=== PATIENT | female | born 1960 | race Caucasian/White ===

== ENCOUNTER 2017-12-24 20:03 | Inpatient (IN) | payer OTHER ==
[~2017-12-24] VITALS: Ht 152.4 cm; Wt 142.2 kg
[~2017-12-24 20:03] MED LIST: ETOMIDATE 2 MG/ML 10 ML VIAL IVP ONE
[2017-12-24 20:33] LABS: ABG BASE EXCESS 5.2 mmol/L (-2.0-3.0); ABG HCO3 39.2 mmol/L (21.0-28.0); ABG OXYGEN SATURATION 87.7 % (95.0-99.0); ABG PCO2 120 mmHg (32-45)
[2017-12-24 21:08] LABS: BASOPHILS % (AUTO) 0.4 % (0.0-5.0); EOSINOPHILS % (AUTO) 0.2 % (0.0-8.0); HEMATOCRIT 37.9 % (36-48); LYMPHOCYTES % (AUTO) 4.5 % (21.0-51.0); MEAN CORPUSCULAR HGB CONC 31.9 g/dL (32.0-36.0); MEAN CORPUSCULAR VOLUME 103.4 fL (79-99); NEUTROPHILS % (AUTO) 90.9 % (40.0-77.0); PLATELET COUNT (AUTO) 261 K/uL (130-400); RED BLOOD CELL COUNT(AUTO) 3.66 MIL/uL (4.00-5.50); RED CELL DISTRIBUTION WIDTH 15.1 % (11.0-15.5); WHITE BLOOD COUNT (AUTO) 13.8 K/uL (4.8-10.8)
[2017-12-24 21:20] LABS: INR 1.01 (0.85-1.15); PARTIAL THROMBOPLASTIN TIME 28.4 SEC (26.3-35.5); PROTHROMBIN TIME 10.6 SEC (9.6-11.6)
[2017-12-24 21:22] LABS: ALBUMIN 2.9 g/dL (3.5-5.0); BILIRUBIN,TOTAL 0.6 mg/dL (0.2-1.0); CREATININE 2.9 mg/dL (0.5-1.5); TOTAL PROTEIN, SERUM 7.3 g/dL (6.0-8.3)
[2017-12-24 21:23] LABS: APPEARANCE,URINE CLEAR (CLEAR); BILIRUBIN,URINE NEGATIVE (NEGATIVE); COLOR,URINE YELLOW (YELLOW); GLUCOSE, URINE (UA) NEGATIVE (NEGATIVE); KETONES,URINE NEGATIVE (NEGATIVE); LEUKOCYTE ESTERASE ,URINE NEGATIVE (NEGATIVE); NITRATE,URINE NEGATIVE (NEGATIVE); OCCULT BLOOD,URINE TRACE-LYSED (NEGATIVE); PH,URINE 5.5 (5.0-8.0); PROTEIN,URINE >=300 (NEGATIVE)
[2017-12-24 21:26] LABS: POTASSIUM 6.2 mmol/L (3.5-5.1)
[2017-12-24 21:28] LABS: AMPHET/METH SCREEN,URINE NEGATIVE (NEGATIVE); BARBITURATE SCREEN, URINE NEGATIVE (NEGATIVE); BENZODIAZEPINES SCREEN,URINE NEGATIVE (NEGATIVE); CANNABINOID SCREEN,URINE NEGATIVE (NEGATIVE); COCAINE SCREEN,URINE NEGATIVE (NEGATIVE); OPIATE SCREEN,URINE POSITIVE (NEGATIVE); PHENCYCLIDINE SCREEN,URINE NEGATIVE (NEGATIVE)
[2017-12-24 21:31] LABS: BACTERIA,URINE Rare /HPF (None Seen); SQUAMOUS EPITHELIAL CELL,UR Rare /HPF (0-2); WBC,URINE 0-1 /HPF (0-1)
[2017-12-24 22:15] LABS: ABG BASE EXCESS 5.7 mmol/L (-2.0-3.0); ABG OXYGEN SATURATION 93.4 % (95.0-99.0); ABG PCO2 73 mmHg (32-45)
[2017-12-24] MEDS ORDERED: ALBUTEROL SULFATE 0.083% 2.5 MG/3 ML INH IH ONE (22:26)
[2017-12-24] MEDS ORDERED: CALCIUM GLUCONATE 1 GM/10 ML VIAL IV ONE (22:34)
[2017-12-24] MEDS ORDERED: INSULIN HUMULIN R 100 UNIT/ML 3ML ONE (22:35)
[2017-12-24] MEDS ORDERED: SODIUM CHLORIDE 0.9% 1000ML 1,000 ML IV ONE (23:10)
[2017-12-25] VITALS (41 sets, daily range): BP systolic 92–177; BP diastolic 54–120
[2017-12-25 00:14] LABS: POTASSIUM 5.6 mmol/L (3.5-5.1)
[2017-12-25 01:27] LABS: ABG BASE EXCESS 4.5 mmol/L (-2.0-3.0); ABG HCO3 34.4 mmol/L (21.0-28.0); ABG OXYGEN SATURATION 86.9 % (95.0-99.0); ABG PCO2 78 mmHg (32-45)
[2017-12-25] MEDS ORDERED: ZOSYN 3.375GM+NS 50ML 50 ML IV ONE (02:07)
[2017-12-25] MEDS ORDERED: SODIUM CHLORIDE 0.9% 50 ML IV ONE (02:07)
[2017-12-25] MEDS ORDERED: ENOXAPARIN SODIUM 30 MG/0.3 ML SQ ONE (02:25)
[2017-12-25 06:11] LABS: BASOPHILS % (AUTO) 0.3 % (0.0-5.0); EOSINOPHILS % (AUTO) 0.1 % (0.0-8.0); HEMATOCRIT 37.4 % (36-48); LYMPHOCYTES % (AUTO) 9.7 % (21.0-51.0); MEAN CORPUSCULAR HEMOGLOBIN 32.2 pg (27.0-33.0); MEAN CORPUSCULAR HGB CONC 31.6 g/dL (32.0-36.0); MEAN CORPUSCULAR VOLUME 101.9 fL (79-99); MONOCYTES % (AUTO) 3.8 % (3.0-13.0); NEUTROPHILS % (AUTO) 86.1 % (40.0-77.0); PLATELET COUNT (AUTO) 220 K/uL (130-400); RED BLOOD CELL COUNT(AUTO) 3.67 MIL/uL (4.00-5.50); RED CELL DISTRIBUTION WIDTH 14.7 % (11.0-15.5)
[2017-12-25 06:20] LABS: CREATININE 2.9 mg/dL (0.5-1.5); POTASSIUM 5.3 mmol/L (3.5-5.1)
[2017-12-25 06:26] LABS: BILIRUBIN,TOTAL 0.5 mg/dL (0.2-1.0); MAGNESIUM 1.6 mg/dL (1.80-2.40); TOTAL PROTEIN, SERUM 7.2 g/dL (6.0-8.3)
[2017-12-25] MEDS ORDERED: IPRATROPIUM/ALBUTEROL SULFATE 3 ML SOLUTION IH ONE (06:45)
[2017-12-25] MEDS ORDERED: LACTATED RINGERS 1000ML 1,000 ML IV SCH (07:00)
[2017-12-25] MEDS: IPRATROPIUM/ALBUTEROL SULFATE 3 ML SOLUTION IH SCH ×3 (07:14→18:13)
[2017-12-25 07:15] LABS: ABG HCO3 37.9 mmol/L (21.0-28.0); ABG OXYGEN SATURATION 93.2 % (95.0-99.0); ABG PCO2 97 mmHg (32-45)
[2017-12-25] MEDS: ZOSYN 3.375GM+NS 50ML 50 ML IV SCH ×2 (08:19→08:22)
[2017-12-25] MEDS: ENOXAPARIN SODIUM 30 MG/0.3 ML SQ SCH ×2 (08:22→19:40)
[2017-12-25] MEDS ORDERED: FENTANYL 2500MCG+NS 250ML 250 ML IV ONE (09:12)
[2017-12-25] MEDS: MIDAZOLAM 100MG-0.9% NS 100ML 100 ML IV PRN ×2 (09:20→19:39)
[2017-12-25] MEDS: FENTANYL 2500MCG+NS 250ML 250 ML IV PRN ×2 (09:20→22:02)
[2017-12-25] MEDS ORDERED: VANCOMYCIN PROTOCOL PER PHARMACY IV SCH (09:30)
[2017-12-25] MEDS ORDERED: SODIUM CHLORIDE 0.9% 1000ML 1,000 ML IV SCH (09:30)
[2017-12-25] MEDS: SODIUM CHLORIDE 0.9% 1000ML 1,000 ML IV SCH ×2 (09:30→19:35)
[2017-12-25] MEDS ORDERED: LORAZEPAM 2 MG/ML 1 ML VIAL ONE (09:36)
[2017-12-25] MEDS ORDERED: COMPOUND IV REFRIGERATED 1 EACH IVSOLN MISC PRN (09:45)
[2017-12-25] MEDS ORDERED: LORAZEPAM 2 MG/ML 1 ML VIAL IVP SCH (09:48)
[2017-12-25 10:38] LABS: ABG HCO3 33.2 mmol/L (21.0-28.0); ABG OXYGEN SATURATION 99.4 % (95.0-99.0); ABG PCO2 35 mmHg (32-45)
[2017-12-25] MEDS ORDERED: INSULIN HUMULIN R 100 UNIT/ML 3ML SQ SCH (11:30)
[2017-12-25] MEDS: CEFEPIME HCL 1 GM VIAL IVP SCH ×2 (11:40→22:13)
[2017-12-25] MEDS: LEVOFLOXACIN 500 MG/D5W 100 ML 100 ML IV SCH (11:48)
[2017-12-25] MEDS: FAMOTIDINE/PF 20 MG/2 ML VIAL IV SCH (11:48)
[2017-12-25] MEDS ORDERED: MORP15TA43 PO (11:55)
[2017-12-25] MEDS ORDERED: SIMV40TA5 PO (11:55)
[2017-12-25] MEDS ORDERED: LEVO25TA4 PO (11:55)
[2017-12-25] MEDS ORDERED: FURO40TA7 PO (11:55)
[2017-12-25] MEDS ORDERED: HYDR-4068 PO (11:55)
[2017-12-25] MEDS ORDERED: GLIM4TAB PO (11:55)
[2017-12-25] MEDS ORDERED: OMEP40CA37 PO (11:55)
[2017-12-25] MEDS ORDERED: LISI-613 PO (11:55)
[2017-12-25] MEDS ORDERED: METO50 PO (11:55)
[2017-12-25] MEDS ORDERED: VENL75CA55 PO (11:55)
[2017-12-25] MEDS: VANCOMYCIN 2 GM in SODIUM CHLORIDE 0.9% 500ML 500 ML IV SCH (12:50)
[2017-12-25] MEDS: FUROSEMIDE 10 MG/ML 4ML VIAL IV SCH (13:09)
[2017-12-25 15:10] LABS: CREATININE 2.7 mg/dL (0.5-1.5); POTASSIUM 4.9 mmol/L (3.5-5.1)
[2017-12-25] MEDS: INSULIN HUMULIN R 100 UNIT/ML 3ML SQ SCH (18:00)
[2017-12-25] MEDS ORDERED: HUM100IN SQ (18:15)
[2017-12-25] MEDS: MAGNESIUM 2GM PREMIX 50ML 50 ML IV PRN (19:34)
[2017-12-26] VITALS (24 sets, daily range): BP systolic 108–145; BP diastolic 63–99
[2017-12-26] MEDS: IPRATROPIUM/ALBUTEROL SULFATE 3 ML SOLUTION IH SCH ×6 (00:02→23:29)
[2017-12-26] MEDS: SODIUM CHLORIDE 0.9% 1000ML 1,000 ML IV SCH ×2 (01:25→08:24)
[2017-12-26] MEDS: FUROSEMIDE 10 MG/ML 4ML VIAL IV SCH ×2 (01:25→13:56)
[2017-12-26 05:12] LABS: ABG BASE EXCESS 6.7 mmol/L (-2.0-3.0); ABG HCO3 29.7 mmol/L (21.0-28.0); ABG OXYGEN SATURATION 95.3 % (95.0-99.0); ABG PCO2 37 mmHg (32-45)
[2017-12-26 05:36] LABS: MEAN CORPUSCULAR HEMOGLOBIN 33.5 pg (27.0-33.0); MEAN CORPUSCULAR HGB CONC 34.3 g/dL (32.0-36.0); MEAN CORPUSCULAR VOLUME 97.5 fL (79-99); PLATELET COUNT (AUTO) 232 K/uL (130-400); RED BLOOD CELL COUNT(AUTO) 3.28 MIL/uL (4.00-5.50); RED CELL DISTRIBUTION WIDTH 14.4 % (11.0-15.5); WHITE BLOOD COUNT (AUTO) 7.8 K/uL (4.8-10.8)
[2017-12-26] MEDS: INSULIN HUMULIN R 100 UNIT/ML 3ML SQ SCH ×4 (06:00→18:00)
[2017-12-26 06:05] LABS: ALBUMIN 2.5 g/dL (3.5-5.0); BILIRUBIN,TOTAL 0.7 mg/dL (0.2-1.0); CREATININE 2.8 mg/dL (0.5-1.5); MAGNESIUM 1.8 mg/dL (1.80-2.40); PHOSPHORUS 3.3 mg/dL (2.5-4.9); TOTAL PROTEIN, SERUM 6.3 g/dL (6.0-8.3); TROPONIN I 0.36 ng/mL (0.00-0.06)
[2017-12-26] MEDS: MAGNESIUM 2GM PREMIX 50ML 50 ML IV PRN (08:52)
[2017-12-26] MEDS: FAMOTIDINE/PF 20 MG/2 ML VIAL IV SCH (08:53)
[2017-12-26] MEDS: ENOXAPARIN SODIUM 30 MG/0.3 ML SQ SCH ×2 (08:53→21:07)
[2017-12-26] MEDS: MIDAZOLAM 100MG-0.9% NS 100ML 100 ML IV PRN ×2 (08:53→21:06)
[2017-12-26] MEDS: CEFEPIME HCL 1 GM VIAL IVP SCH ×2 (08:53→21:06)
[2017-12-26] MEDS: FENTANYL 2500MCG+NS 250ML 250 ML IV PRN (11:36)
[2017-12-27] VITALS (22 sets, daily range): BP systolic 96–149; BP diastolic 51–91
[2017-12-27] MEDS: FUROSEMIDE 10 MG/ML 4ML VIAL IV SCH ×2 (01:06→11:41)
[2017-12-27] MEDS: INSULIN HUMULIN R 100 UNIT/ML 3ML SQ SCH ×4 (01:09→18:00)
[2017-12-27] MEDS: FENTANYL 2500MCG+NS 250ML 250 ML IV PRN (02:03)
[2017-12-27 04:54] LABS: ABG HCO3 31.6 mmol/L (21.0-28.0); ABG OXYGEN SATURATION 97.8 % (95.0-99.0); ABG PCO2 33 mmHg (32-45)
[2017-12-27 05:28] LABS: HEMATOCRIT 31.3 % (36-48); MEAN CORPUSCULAR HEMOGLOBIN 32.8 pg (27.0-33.0); MEAN CORPUSCULAR HGB CONC 33.4 g/dL (32.0-36.0); PLATELET COUNT (AUTO) 210 K/uL (130-400); RED CELL DISTRIBUTION WIDTH 14.7 % (11.0-15.5); WHITE BLOOD COUNT (AUTO) 6.7 K/uL (4.8-10.8)
[2017-12-27 05:40] LABS: CREATININE 2.8 mg/dL (0.5-1.5); MAGNESIUM 2.1 mg/dL (1.80-2.40); POTASSIUM 3.3 mmol/L (3.5-5.1)
[2017-12-27] MEDS: IPRATROPIUM/ALBUTEROL SULFATE 3 ML SOLUTION IH SCH ×4 (06:43→23:41)
[2017-12-27] MEDS: FAMOTIDINE/PF 20 MG/2 ML VIAL IV SCH (08:27)
[2017-12-27] MEDS: LEVOFLOXACIN 500 MG/D5W 100 ML 100 ML IV SCH (08:28)
[2017-12-27] MEDS: ENOXAPARIN SODIUM 30 MG/0.3 ML SQ SCH ×2 (08:28→21:12)
[2017-12-27] MEDS: MIDAZOLAM 100MG-0.9% NS 100ML 100 ML IV PRN ×2 (08:28→22:39)
[2017-12-27] MEDS: CEFEPIME HCL 1 GM VIAL IVP SCH ×2 (10:40→21:13)
[2017-12-27] MEDS: VANCOMYCIN 2 GM in SODIUM CHLORIDE 0.9% 500ML 500 ML IV SCH (10:48)
[2017-12-27] MEDS ORDERED: POTASSIUM CHLORIDE 20MEQ/100ML 100 ML IV ONE (10:57)
[2017-12-27] MEDS ORDERED: PHARMACY COMMUNICATION MISC SCH (11:00)
[2017-12-27] MEDS ORDERED: POTASSIUM CHLORIDE 10% ELIXIR 20 MEQ/15 ML UDCUP PO PRN (11:30)
[2017-12-27] MEDS ORDERED: POTASSIUM CHLORIDE 20 MEQ ERTAB PO PRN (11:30)
[2017-12-27] MEDS ORDERED: LIDOCAINE HCL-MPF 1% 2ML VIAL IJ PRN (11:30)
[2017-12-28] VITALS (23 sets, daily range): BP systolic 105–153; BP diastolic 67–90
[2017-12-28] MEDS: FUROSEMIDE 10 MG/ML 4ML VIAL IV SCH ×2 (01:37→12:11)
[2017-12-28] MEDS: POTASSIUM CHLORIDE 20MEQ/100ML 100 ML IV PRN ×3 (01:39→12:11)
[2017-12-28 04:01] LABS: HEMATOCRIT 32.7 % (36-48); MEAN CORPUSCULAR HEMOGLOBIN 33.3 pg (27.0-33.0); MEAN CORPUSCULAR HGB CONC 34.2 g/dL (32.0-36.0); MEAN CORPUSCULAR VOLUME 97.6 fL (79-99); PLATELET COUNT (AUTO) 236 K/uL (130-400); RED BLOOD CELL COUNT(AUTO) 3.35 MIL/uL (4.00-5.50); RED CELL DISTRIBUTION WIDTH 14.9 % (11.0-15.5); WHITE BLOOD COUNT (AUTO) 6.9 K/uL (4.8-10.8)
[2017-12-28 04:16] LABS: ALBUMIN 2.3 g/dL (3.5-5.0); BILIRUBIN,TOTAL 0.9 mg/dL (0.2-1.0); CREATININE 2.9 mg/dL (0.5-1.5); POTASSIUM 3.2 mmol/L (3.5-5.1); TOTAL PROTEIN, SERUM 6.4 g/dL (6.0-8.3)
[2017-12-28 04:21] LABS: ABG BASE EXCESS 7.3 mmol/L (-2.0-3.0); ABG HCO3 29.5 mmol/L (21.0-28.0); ABG OXYGEN SATURATION 96.4 % (95.0-99.0); ABG PCO2 34 mmHg (32-45)
[2017-12-28] MEDS: INSULIN HUMULIN R 100 UNIT/ML 3ML SQ SCH ×4 (05:47→18:16)
[2017-12-28] MEDS: IPRATROPIUM/ALBUTEROL SULFATE 3 ML SOLUTION IH SCH ×3 (06:29→18:12)
[2017-12-28] MEDS: CEFEPIME HCL 1 GM VIAL IVP SCH ×2 (09:16→20:45)
[2017-12-28] MEDS: FAMOTIDINE/PF 20 MG/2 ML VIAL IV SCH (09:16)
[2017-12-28] MEDS: ENOXAPARIN SODIUM 30 MG/0.3 ML SQ SCH ×2 (09:17→20:42)
[2017-12-28] MEDS: ARTIFICAL TEARS SOL 15 ML OU SCH ×3 (09:18→20:42)
[2017-12-28 12:15] LABS: ABG BASE EXCESS 4.9 mmol/L (-2.0-3.0); ABG HCO3 27.7 mmol/L (21.0-28.0); ABG OXYGEN SATURATION 96.2 % (95.0-99.0); ABG PCO2 35 mmHg (32-45)
[2017-12-28] MEDS: MIDAZOLAM HCL 1 MG/ML 2ML VIAL IVP PRN ×2 (15:51→21:53)
[2017-12-28] MEDS ORDERED: ARTIFICAL TEARS SOL 15 ML OU SCH (21:00)
[2017-12-28] MEDS: FENTANYL CITRATE PF 50 MCG/1 ML 2ML VIAL IVP PRN (23:40)
[2017-12-29] VITALS (24 sets, daily range): BP systolic 95–158; BP diastolic 50–96
[2017-12-29] MEDS: FUROSEMIDE 10 MG/ML 4ML VIAL IV SCH ×2 (00:06→14:04)
[2017-12-29] MEDS: INSULIN HUMULIN R 100 UNIT/ML 3ML SQ SCH ×5 (00:07→23:48)
[2017-12-29] MEDS: IPRATROPIUM/ALBUTEROL SULFATE 3 ML SOLUTION IH SCH ×5 (00:24→23:58)
[2017-12-29] MEDS ORDERED: PROPOFOL 1000 MG/100 ML 100 ML IV ONE (01:07)
[2017-12-29] MEDS ORDERED: PROPOFOL 1000 MG/100 ML IV PRN (01:15)
[2017-12-29] MEDS: ARTIFICAL TEARS SOL 15 ML OU SCH ×4 (03:05→20:06)
[2017-12-29 03:56] LABS: BASOPHILS % (AUTO) 0.4 % (0.0-5.0); EOSINOPHILS % (AUTO) 3.3 % (0.0-8.0); HEMATOCRIT 33.5 % (36-48); LYMPHOCYTES % (AUTO) 12.1 % (21.0-51.0); MEAN CORPUSCULAR HEMOGLOBIN 32.5 pg (27.0-33.0); MEAN CORPUSCULAR HGB CONC 33.4 g/dL (32.0-36.0); MEAN CORPUSCULAR VOLUME 97.2 fL (79-99); NEUTROPHILS % (AUTO) 79.2 % (40.0-77.0); PLATELET COUNT (AUTO) 212 K/uL (130-400); RED BLOOD CELL COUNT(AUTO) 3.45 MIL/uL (4.00-5.50); WHITE BLOOD COUNT (AUTO) 8.6 K/uL (4.8-10.8)
[2017-12-29 04:14] LABS: MAGNESIUM 1.9 mg/dL (1.80-2.40); PHOSPHORUS 3.4 mg/dL (2.5-4.9); POTASSIUM 3.4 mmol/L (3.5-5.1)
[2017-12-29] MEDS: ALPRAZOLAM 0.25 MG TABLET PO SCH ×2 (09:39→21:53)
[2017-12-29] MEDS: LEVOFLOXACIN 500 MG/D5W 100 ML 100 ML IV SCH (09:39)
[2017-12-29] MEDS: ENOXAPARIN SODIUM 30 MG/0.3 ML SQ SCH ×2 (09:40→20:06)
[2017-12-29] MEDS: FAMOTIDINE/PF 20 MG/2 ML VIAL IV SCH (09:41)
[2017-12-29] MEDS: CEFEPIME HCL 1 GM VIAL IVP SCH ×2 (09:41→22:05)
[2017-12-29] MEDS ORDERED: POTASSIUM CHLORIDE 20 MEQ ERTAB PO PRN (13:00)
[2017-12-29] MEDS ORDERED: POTASSIUM CHLORIDE 10MEQ/100ML 100 ML IV PRN (13:00)
[2017-12-29] MEDS ORDERED: LIDOCAINE HCL-MPF 1% 2ML VIAL IVP PRN (13:00)
[2017-12-29] MEDS: MAGNESIUM 2GM PREMIX 50ML 50 ML IV PRN (14:05)
[2017-12-29] MEDS: POTASSIUM CHLORIDE 10% ELIXIR 20 MEQ/15 ML UDCUP PO PRN ×2 (14:06→16:00)
[2017-12-29] MEDS: FENTANYL CITRATE PF 50 MCG/1 ML 2ML VIAL IVP PRN (14:55)
[2017-12-29] MEDS: VANCOMYCIN 1.5 GM in SODIUM CHLORIDE 0.9% 250 ML IV SCH (15:39)
[2017-12-29] MEDS ORDERED: SODIUM CHLORIDE 0.9% 500ML 500 ML IV ONE (15:44)
[2017-12-29] MEDS: MIDAZOLAM HCL 1 MG/ML 2ML VIAL IVP PRN (19:34)
[2017-12-30] VITALS (23 sets, daily range): BP systolic 98–154; BP diastolic 51–96
[2017-12-30] MEDS: FUROSEMIDE 10 MG/ML 4ML VIAL IV SCH ×2 (00:46→12:38)
[2017-12-30] MEDS: ARTIFICAL TEARS SOL 15 ML OU SCH ×4 (02:19→21:25)
[2017-12-30] MEDS: FENTANYL CITRATE PF 50 MCG/1 ML 2ML VIAL IVP PRN ×2 (02:20→06:09)
[2017-12-30 04:41] LABS: BASOPHILS % (AUTO) 0.5 % (0.0-5.0); EOSINOPHILS % (AUTO) 4.3 % (0.0-8.0); HEMATOCRIT 31.9 % (36-48); LYMPHOCYTES % (AUTO) 8.9 % (21.0-51.0); MEAN CORPUSCULAR HEMOGLOBIN 33.7 pg (27.0-33.0); MEAN CORPUSCULAR HGB CONC 34.4 g/dL (32.0-36.0); MEAN CORPUSCULAR VOLUME 97.8 fL (79-99); NEUTROPHILS % (AUTO) 80.3 % (40.0-77.0); PLATELET COUNT (AUTO) 228 K/uL (130-400); RED BLOOD CELL COUNT(AUTO) 3.26 MIL/uL (4.00-5.50); RED CELL DISTRIBUTION WIDTH 14.7 % (11.0-15.5)
[2017-12-30 05:00] LABS: ALBUMIN 2.5 g/dL (3.5-5.0); MAGNESIUM 2.2 mg/dL (1.80-2.40); POTASSIUM 3.4 mmol/L (3.5-5.1); TOTAL PROTEIN, SERUM 6.9 g/dL (6.0-8.3)
[2017-12-30] MEDS: INSULIN HUMULIN R 100 UNIT/ML 3ML SQ SCH ×3 (06:14→18:00)
[2017-12-30] MEDS: IPRATROPIUM/ALBUTEROL SULFATE 3 ML SOLUTION IH SCH ×4 (06:17→22:12)
[2017-12-30] MEDS: ALPRAZOLAM 0.25 MG TABLET PO SCH ×2 (07:02→21:00)
[2017-12-30] MEDS: ENOXAPARIN SODIUM 30 MG/0.3 ML SQ SCH ×2 (09:52→21:24)
[2017-12-30] MEDS: FAMOTIDINE/PF 20 MG/2 ML VIAL IV SCH (09:53)
[2017-12-30] MEDS: CEFEPIME HCL 1 GM VIAL IVP SCH ×2 (09:54→21:23)
[2017-12-30 11:32] LABS: ABG BASE EXCESS 3.1 mmol/L (-2.0-3.0); ABG HCO3 27.1 mmol/L (21.0-28.0); ABG OXYGEN SATURATION 95.1 % (95.0-99.0); ABG PCO2 39 mmHg (32-45)
[2017-12-30] MEDS ORDERED: ACETAMINOPHEN ELIXIR 650 MG/20.3 ML UDCUP ONE (12:34)
[2017-12-30] MEDS ORDERED: ACETAMINOPHEN ELIXIR 650 MG/20.3 ML UDCUP PEG PRN (12:45)
[2017-12-30] MEDS ORDERED: RACEPINEPHRINE HCL 2.25% 0.5 ML NEB SOLN ONE ×2 (16:34→19:39)
[2017-12-30 17:45] LABS: ABG BASE EXCESS 0.8 mmol/L (-2.0-3.0); ABG HCO3 27.8 mmol/L (21.0-28.0); ABG OXYGEN SATURATION 93.4 % (95.0-99.0); ABG PCO2 54 mmHg (32-45)
[2017-12-30] MEDS ORDERED: RACEPINEPHRINE HCL 2.25% 0.5 ML NEB SOLN NEB ONE ×2 (18:00→20:45)
[2017-12-31] VITALS (18 sets, daily range): BP systolic 123–149; BP diastolic 64–92
[2017-12-31] MEDS ORDERED: METHYLPREDNISOLONE SOD SUCC 40MG/ML 1ML ONE (00:25)
[2017-12-31] MEDS ORDERED: RACEPINEPHRINE HCL 2.25% 0.5 ML NEB SOLN ONE (00:27)
[2017-12-31] MEDS ORDERED: RACEPINEPHRINE HCL 2.25% 0.5 ML NEB SOLN NEB PRN (00:30)
[2017-12-31] MEDS: METHYLPREDNISOLONE SOD SUCC 40MG/ML 1ML IVP SCH ×3 (00:30→16:10)
[2017-12-31] MEDS: FUROSEMIDE 10 MG/ML 4ML VIAL IV SCH ×2 (00:34→13:37)
[2017-12-31] MEDS: ARTIFICAL TEARS SOL 15 ML OU SCH (05:01)
[2017-12-31 05:17] LABS: CREATININE 2.8 mg/dL (0.5-1.5); POTASSIUM 3.8 mmol/L (3.5-5.1)
[2017-12-31] MEDS: INSULIN HUMULIN R 100 UNIT/ML 3ML SQ SCH ×5 (05:56→20:49)
[2017-12-31] MEDS: IPRATROPIUM/ALBUTEROL SULFATE 3 ML SOLUTION IH SCH ×5 (06:33→21:57)
[2017-12-31] MEDS: FAMOTIDINE/PF 20 MG/2 ML VIAL IV SCH (08:16)
[2017-12-31] MEDS: ENOXAPARIN SODIUM 30 MG/0.3 ML SQ SCH ×2 (08:17→20:51)
[2017-12-31] MEDS: ALPRAZOLAM 0.25 MG TABLET PO SCH ×2 (08:18→20:47)
[2017-12-31] MEDS: LEVOFLOXACIN 500 MG/D5W 100 ML 100 ML IV SCH (08:18)
[2017-12-31] MEDS ORDERED: HYDROCODONE/ACETAMINOPHEN 5/325 MG TAB PO PRN (10:00)
[2017-12-31] MEDS: CEFEPIME HCL 1 GM VIAL IVP SCH ×2 (10:24→22:32)
[2017-12-31] MEDS: HYDROCODONE/ACETAMINOPHEN 7.5/325 MG TAB PO PRN ×2 (12:02→17:49)
[2017-12-31] MEDS: VANCOMYCIN 1.5 GM in SODIUM CHLORIDE 0.9% 250 ML IV SCH (16:10)
[2017-12-31] MEDS ORDERED: ACETAMINOPHEN 325 MG TAB PO PRN (17:45)
[2018-01-01] MEDS: METHYLPREDNISOLONE SOD SUCC 40MG/ML 1ML IVP SCH ×2 (00:25→10:02)
[2018-01-01] MEDS: HYDROCODONE/ACETAMINOPHEN 7.5/325 MG TAB PO PRN ×4 (00:43→16:27)
[2018-01-01] MEDS: FUROSEMIDE 10 MG/ML 4ML VIAL IV SCH ×2 (00:43→10:02)
[2018-01-01] MEDS: IPRATROPIUM/ALBUTEROL SULFATE 3 ML SOLUTION IH SCH ×6 (01:54→21:08)
[2018-01-01 03:48] VITALS: BP 142/77
[2018-01-01 05:50] LABS: HEMATOCRIT 32.6 % (36-48); MEAN CORPUSCULAR HEMOGLOBIN 32.8 pg (27.0-33.0); MEAN CORPUSCULAR HGB CONC 33.2 g/dL (32.0-36.0); MEAN CORPUSCULAR VOLUME 98.8 fL (79-99); PLATELET COUNT (AUTO) 243 K/uL (130-400); RED CELL DISTRIBUTION WIDTH 14.2 % (11.0-15.5); WHITE BLOOD COUNT (AUTO) 11.3 K/uL (4.8-10.8)
[2018-01-01 06:05] LABS: POTASSIUM 3.9 mmol/L (3.5-5.1)
[2018-01-01] MEDS: INSULIN LISPRO 100 UNIT/ML 3ML SQ SCH ×5 (06:23→22:07)
[2018-01-01 08:00] VITALS: BP 142/81
[2018-01-01] MEDS: ALPRAZOLAM 0.25 MG TABLET PO SCH ×2 (10:01→21:58)
[2018-01-01] MEDS: CEFEPIME HCL 1 GM VIAL IVP SCH ×2 (10:02→21:57)
[2018-01-01] MEDS: FAMOTIDINE/PF 20 MG/2 ML VIAL IV SCH (10:02)
[2018-01-01] MEDS: ENOXAPARIN SODIUM 30 MG/0.3 ML SQ SCH ×2 (10:03→21:57)
[2018-01-01 12:00] VITALS: BP 138/77
[2018-01-01 16:00] VITALS: BP 152/84
[2018-01-01] MEDS: FUROSEMIDE 40 MG TABLET PO SCH (16:27)
[2018-01-01] MEDS: INSULIN GLARGINE 100 UNITS/ML 10 ML VIAL SQ SCH (16:35)
[2018-01-01 20:00] VITALS: BP_SYST 112; BP_SYST 140; BP_DIAS 65; BP_DIAS 72
[2018-01-01] MEDS: FAMOTIDINE 20MG TAB 20 MG TAB PO SCH (21:58)
[2018-01-02] VITALS (7 sets, daily range): BP systolic 126–148; BP diastolic 66–95
[2018-01-02] MEDS: HYDROCODONE/ACETAMINOPHEN 7.5/325 MG TAB PO PRN ×4 (00:06→23:52)
[2018-01-02] MEDS: IPRATROPIUM/ALBUTEROL SULFATE 3 ML SOLUTION IH SCH ×6 (02:04→21:46)
[2018-01-02] MEDS: FUROSEMIDE 40 MG TABLET PO SCH ×2 (05:05→13:45)
[2018-01-02 05:55] LABS: HEMATOCRIT 32.9 % (36-48); MEAN CORPUSCULAR HEMOGLOBIN 32.8 pg (27.0-33.0); MEAN CORPUSCULAR HGB CONC 33.1 g/dL (32.0-36.0); MEAN CORPUSCULAR VOLUME 99.1 fL (79-99); PLATELET COUNT (AUTO) 215 K/uL (130-400); RED BLOOD CELL COUNT(AUTO) 3.32 MIL/uL (4.00-5.50); WHITE BLOOD COUNT (AUTO) 10.2 K/uL (4.8-10.8)
[2018-01-02 06:19] LABS: ALBUMIN 2.9 g/dL (3.5-5.0); BILIRUBIN,TOTAL 0.3 mg/dL (0.2-1.0); CREATININE 2.9 mg/dL (0.5-1.5); POTASSIUM 3.7 mmol/L (3.5-5.1); TOTAL PROTEIN, SERUM 7.4 g/dL (6.0-8.3); URIC ACID 8.6 mg/dL (2.6-7.2)
[2018-01-02] MEDS: INSULIN LISPRO 100 UNIT/ML 3ML SQ SCH ×4 (06:46→21:17)
[2018-01-02] MEDS ORDERED: FUROSEMIDE 40 MG TABLET PO SCH (09:00)
[2018-01-02] MEDS: CEFEPIME HCL 1 GM VIAL IVP SCH ×2 (09:40→21:24)
[2018-01-02] MEDS: LEVOFLOXACIN 500 MG/D5W 100 ML 100 ML IV SCH (09:40)
[2018-01-02] MEDS: ALPRAZOLAM 0.25 MG TABLET PO SCH ×2 (09:40→21:13)
[2018-01-02] MEDS: PREDNISONE 10 MG TABLET PO SCH (09:40)
[2018-01-02] MEDS: FAMOTIDINE 20MG TAB 20 MG TAB PO SCH ×2 (09:40→21:13)
[2018-01-02] MEDS: ENOXAPARIN SODIUM 30 MG/0.3 ML SQ SCH ×2 (09:40→21:13)
[2018-01-02] MEDS: INSULIN GLARGINE 100 UNITS/ML 10 ML VIAL SQ SCH (09:58)
[2018-01-03] MEDS: IPRATROPIUM/ALBUTEROL SULFATE 3 ML SOLUTION IH SCH ×6 (01:58→21:09)
[2018-01-03 04:21] VITALS: BP 128/72
[2018-01-03] MEDS: HYDROCODONE/ACETAMINOPHEN 7.5/325 MG TAB PO PRN ×3 (05:24→18:19)
[2018-01-03] MEDS: FUROSEMIDE 40 MG TABLET PO SCH ×2 (05:24→17:59)
[2018-01-03] MEDS: PNEUMOCOCCAL VACCINE POLYVALENT 0.5 ML/VIAL [PPV] IM SCH ×2 (05:27→18:03)
[2018-01-03 06:11] LABS: HEMATOCRIT 30.7 % (36-48); MEAN CORPUSCULAR HGB CONC 34.6 g/dL (32.0-36.0); MEAN CORPUSCULAR VOLUME 98.2 fL (79-99); PLATELET COUNT (AUTO) 240 K/uL (130-400); RED BLOOD CELL COUNT(AUTO) 3.13 MIL/uL (4.00-5.50); RED CELL DISTRIBUTION WIDTH 13.7 % (11.0-15.5); WHITE BLOOD COUNT (AUTO) 7.8 K/uL (4.8-10.8)
[2018-01-03 06:23] LABS: CREATININE 2.8 mg/dL (0.5-1.5); POTASSIUM 3.6 mmol/L (3.5-5.1)
[2018-01-03] MEDS: INSULIN LISPRO 100 UNIT/ML 3ML SQ SCH ×4 (06:31→21:14)
[2018-01-03 08:00] VITALS: BP 131/83
[2018-01-03] MEDS: CEFEPIME HCL 1 GM VIAL IVP SCH (10:28)
[2018-01-03] MEDS: POLYETHYLENE GLYCOL 3350 17 GM POWD.PACK PO SCH (10:28)
[2018-01-03] MEDS: PREDNISONE 10 MG TABLET PO SCH (10:29)
[2018-01-03] MEDS: FAMOTIDINE 20MG TAB 20 MG TAB PO SCH ×2 (10:30→21:09)
[2018-01-03] MEDS: ALPRAZOLAM 0.25 MG TABLET PO SCH ×2 (10:30→21:09)
[2018-01-03] MEDS: ENOXAPARIN SODIUM 30 MG/0.3 ML SQ SCH ×2 (10:32→21:10)
[2018-01-03] MEDS: INSULIN GLARGINE 100 UNITS/ML 10 ML VIAL SQ SCH (10:37)
[2018-01-03 12:00] VITALS: BP 134/73
[2018-01-03 16:00] VITALS: BP 160/91
[2018-01-03 19:28] VITALS: BP 156/77
[2018-01-03 23:15] VITALS: BP 138/73
[2018-01-04] MEDS: HYDROCODONE/ACETAMINOPHEN 7.5/325 MG TAB PO PRN (00:21)
[2018-01-04] MEDS: IPRATROPIUM/ALBUTEROL SULFATE 3 ML SOLUTION IH SCH ×6 (01:00→21:06)
[2018-01-04 03:38] VITALS: BP 127/85
[2018-01-04] MEDS: FUROSEMIDE 40 MG TABLET PO SCH ×4 (06:28→17:34)
[2018-01-04] MEDS: INSULIN LISPRO 100 UNIT/ML 3ML SQ SCH ×4 (06:32→20:30)
[2018-01-04] MEDS ORDERED: LEVOTHYROXINE 25 MCG TABLET PO SCH (07:30)
[2018-01-04] MEDS ORDERED: PANTOPRAZOLE SODIUM 40 MG TABLET.DR PO SCH (07:47)
[2018-01-04] MEDS: HYDROCODONE/ACETAMINOPHEN 10/325 MG TAB PO PRN ×2 (07:56→13:21)
[2018-01-04] MEDS: ALPRAZOLAM 0.25 MG TABLET PO SCH ×2 (07:57→20:20)
[2018-01-04] MEDS: GLIMEPIRIDE 2 MG TABLET PO SCH ×2 (07:57→20:20)
[2018-01-04] MEDS: FAMOTIDINE 20MG TAB 20 MG TAB PO SCH ×2 (07:57→20:20)
[2018-01-04] MEDS: LISINOPRIL 20 MG TABLET PO SCH ×2 (07:58→20:21)
[2018-01-04] MEDS: PREDNISONE 10 MG TABLET PO SCH (07:58)
[2018-01-04] MEDS: POLYETHYLENE GLYCOL 3350 17 GM POWD.PACK PO SCH (07:58)
[2018-01-04] MEDS: METOPROLOL TARTRATE 50 MG TAB PO SCH ×2 (07:58→20:21)
[2018-01-04] MEDS: LEVOFLOXACIN 500 MG/D5W 100 ML 100 ML IV SCH (07:59)
[2018-01-04 08:00] VITALS: BP 144/88
[2018-01-04] MEDS: ENOXAPARIN SODIUM 30 MG/0.3 ML SQ SCH ×2 (08:05→20:21)
[2018-01-04] MEDS: INSULIN GLARGINE 100 UNITS/ML 10 ML VIAL SQ SCH (08:14)
[2018-01-04] MEDS ORDERED: VENLAFAXINE HCL XR 37.5 MG CAP PO SCH (09:00)
[2018-01-04] MEDS: INSULIN HUMULIN 70/30 100 UNIT/ML 3ML SQ SCH ×3 (10:41→17:41)
[2018-01-04 12:00] VITALS: BP 142/78
[2018-01-04] MEDS: PNEUMOCOCCAL VACCINE POLYVALENT 0.5 ML/VIAL [PPV] IM SCH (15:51)
[2018-01-04 16:00] VITALS: BP 135/87
[2018-01-04] MEDS ORDERED: LACTULOSE 20 GM/30 ML UDCUP PO PRN (17:00)
[2018-01-04 19:26] VITALS: BP 130/78
[2018-01-04] MEDS ORDERED: BISACODYL 10 MG SUPP.RECT RC PRN (19:45)
[2018-01-04] MEDS ORDERED: BISACODYL 10 MG SUPP.RECT RC ONE (20:13)
[2018-01-04] MEDS ORDERED: SIMVASTATIN 20 MG TABLET PO SCH (21:00)
[2018-01-04 23:32] VITALS: BP 134/82
[2018-01-05] MEDS: HYDROCODONE/ACETAMINOPHEN 10/325 MG TAB PO PRN (00:14)
[2018-01-05] MEDS: IPRATROPIUM/ALBUTEROL SULFATE 3 ML SOLUTION IH SCH (01:51)
== END 2018-01-05 02:30 | DRG 870 ==
LOC: EDH 20:03 → EDHIP 22:18 → 2CH 12-25 07:24 → 3DH 12-31 21:47
PROVIDERS: ADMIT Internal Medicine; ATTEND Internal Medicine
PROC: 5A1955Z Respiratory Ventilation, Greater than 96 Consecutive Hours (ICD-10-PCS; principal; 2017-12-25)
PROC: 0BH17EZ Insertion of Endotracheal Airway into Trachea, Via Natural or Artificial Opening (ICD-10-PCS; 2017-12-25)
PROC: 02H633Z Insertion of Infusion Device into Right Atrium, Percutaneous Approach (ICD-10-PCS; 2017-12-25)
PROC: B244ZZZ Ultrasonography of Right Heart (ICD-10-PCS; 2017-12-25)
PROC: 3E0234Z Introduction of Serum, Toxoid and Vaccine into Muscle, Percutaneous Approach (ICD-10-PCS; 2017-12-26)
PROC: 5A09357 Assistance with Respiratory Ventilation, Less than 24 Consecutive Hours, Continuous Positive Airway Pressure (ICD-10-PCS; 2018-01-01)
DX: A41.9 Sepsis, unspecified organism (principal); J96.21 Acute and chronic respiratory failure with hypoxia; I21.4 Non-ST elevation (NSTEMI) myocardial infarction; J96.22 Acute and chronic respiratory failure with hypercapnia; I50.33 Acute on chronic diastolic (congestive) heart failure; J18.9 Pneumonia, unspecified organism; E87.2 Acidosis; E66.2 Morbid (severe) obesity with alveolar hypoventilation; N17.9 Acute kidney failure, unspecified; F11.20 Opioid dependence, uncomplicated; I13.0 Hypertensive heart and chronic kidney disease with heart failure and stage 1 through stage 4 chronic kidney disease, or unspecified chronic kidney disease; J44.0 Chronic obstructive pulmonary disease with (acute) lower respiratory infection; Z68.44 Body mass index [BMI] 60.0-69.9, adult; Z66 Do not resuscitate; Z51.5 Encounter for palliative care; E87.70 Fluid overload, unspecified; E11.22 Type 2 diabetes mellitus with diabetic chronic kidney disease; D64.9 Anemia, unspecified; E03.9 Hypothyroidism, unspecified; E11.21 Type 2 diabetes mellitus with diabetic nephropathy; E11.65 Type 2 diabetes mellitus with hyperglycemia; E87.5 Hyperkalemia; F41.9 Anxiety disorder, unspecified; G89.29 Other chronic pain; L89.90 Pressure ulcer of unspecified site, unspecified stage; N18.9 Chronic kidney disease, unspecified; Z74.01 Bed confinement status; Z88.8 Allergy status to other drugs, medicaments and biological substances; Z23 Encounter for immunization
CPT/HCPCS: 31500; 36415; 36600; 71045; 76770; 80048; 80053; 80202; 80305; 81001; 82550; 82803; 82948; 83605; 83735; 83874; 83880; 84100; 84132; 84484; 84550; 85025; 85027; 85610; 85730; 87040; 87071; 87088; 87205; 90732; 92610; 93005; 93306; 93970; 94002; 94003; 94150; 94640; 94660; 94667; 94668; 97039; 99291; A4218; A4357; C1751; G0008; G0009; J0610; J0692; J1650; J1815; J1940; J1956; J2060; J2250; J2543; J2704; J2920; J3010; J3370; J3475; J3480; J3490; J7030; J7040; J7512; Q2038